=== PATIENT | female | born 1940 | race Caucasian/White ===

== ENCOUNTER 2017-10-03 08:52 | Emergency (ER) | payer OTHER ==
[~2017-10-03] VITALS: Ht 160 cm; Wt 60.3 kg
[~2017-10-03 08:52] MED LIST: ACID REDUCER 1150 MG PO; ADVAIR 250/501 DISK IH; ADVAIR HFA120 INHALA IH; ALBUTEROL2.5 MG/3 M IH; ALENDRONATE SOD35 MG PO; ASPIR 8181 M1 PO; ASPIRIN LOW DOS81 MG PO; ATORVASTATIN CA80 MG PO; CALCIUM +D & M1 EACH PO; CALCIUM 500 +1 EACH PO; CARDIZEM CD,CA180 MG PO; CARDIZEM120 MG PO; CENTRUM SILVER1 EAC3 PO; COZAAR100 MG PO; COZAAR50 MG PO; DILTIAZEM 24HR180 MG PO; DOXYCYCLINE HY100 MG PO; ECOTRIN325 MG PO; ELIQUIS2.5 MG PO; EPIPEN ADU0.3 MG/0.3 IM; FLOVENT DISKUS1 DIS2 IH; LO-DOSE ASPIRIN81 M1 PO; LOSARTAN POTASS50 MG PO; MONTELUKAST SOD10 MG PO; NORVASC10 MG PO; NORVASC5 MG PO; OMEPRAZOLE20 MG PO; PREDNISONE10 MG PO; PREDNISONE20 MG PO; PREVACID30 MG PO; PRILOSEC40 MG PO; PROAIR HFA8.5 GM IH; PROVENTIL,2.5 MG/3 M IH; SPIRIVA1 INHALATI IH; TYLENOL REGULA325 MG PO; XARELTO15 MG PO; ZANTAC150 MG PO
[2017-10-03 09:50] LABS: HEMATOCRIT 43.6 % (36.0-46.0); HEMOGLOBIN 14.1 G/DL (11.9-15.5); MCH 30.4 PG (29.0-34.0); MCHC 32.3 G/DL (30.0-36.0); PLATELET COUNT 200 K/uL (156-360); RBC DIS.WIDTH-CV 12.9 % (11.8-14.6); RBC DIS.WIDTH-SD 44.2 % (39-53); RED BLOOD COUNT 4.64 M/uL (3.80-5.20); WHITE BLOOD COUNT 9.1 K/uL (4.1-10.2)
[2017-10-03 09:59] LABS: CHLORIDE 107 mEq/L (99-109); POTASSIUM 3.8 mEq/L (3.7-5.4); SODIUM 147 mEq/L (136-147)
[2017-10-03 10:01] LABS: GLUCOSE 84 mg/dL (70-99)
[2017-10-03 10:05] LABS: CREATININE 1.1 mg/dL (0.6-1.3); GFR ESTIMATE (CALCULATED) 51 mL/min/
[2017-10-03 10:06] LABS: UREA NITROGEN (BUN) 27 mg/dL (9-23)
[2017-10-03 10:11] LABS: TROP-I INTERPRETATION NEGATIVE; TROPONIN-I < 0.01 ng/mL (0.0-0.30)
[2017-10-03 11:00] VITALS: BP 191/79
== END 2017-10-03 11:00 | disposition home or self-care (01) ==
LOC: EME 08:52
PROVIDERS: Physician Assistant
DX: R06.00 Dyspnea, unspecified (principal); I12.9 Hypertensive chronic kidney disease with stage 1 through stage 4 chronic kidney disease, or unspecified chronic kidney disease; N18.9 Chronic kidney disease, unspecified; J45.909 Unspecified asthma, uncomplicated; J43.9 Emphysema, unspecified; Z79.01 Long term (current) use of anticoagulants; Z87.891 Personal history of nicotine dependence; K21.9 Gastro-esophageal reflux disease without esophagitis; Z88.2 Allergy status to sulfonamides; Z88.0 Allergy status to penicillin; Z88.5 Allergy status to narcotic agent
CPT/HCPCS: 71046; 80048; 84484; 85027; 93005; 99281; 99284